=== PATIENT | male | born 1980 | race American Indian/Alaskan Native ===

== ENCOUNTER 2016-12-18 02:52 | Emergency (ER) | payer SELFPAY ==
[2016-12-18] MEDS ORDERED: UNASYN/NS 3 GM/100 ML 3 GM/100 ML BAG IV ONE (03:12)
[2016-12-18] MEDS ORDERED: TORADOL IV ONE (03:12)
[2016-12-18] MEDS ORDERED: DECADRON IV ONE (03:12)
[2016-12-18] MEDS ORDERED: NACL 0.9% 1000 ML 1,000 ML IV ONE ×2 (03:13→06:51)
--- NOTE | 2016-12-18 03:13 | Emergency Department Report ---
ED General Adult HPI - General Chief complaint: Sore Throat Stated complaint: THROAT SWELLING Time Seen by Provider: 12/18/16 03:11 Source: patient, RN notes reviewed Mode of arrival: Ambulatory Limitations: No Limitations - History of Present Illness Initial comments: This is a 36-year-old male. He is previously unknown to me. He does not have a local primary care doctor. He has no chronic medical conditions. Presents to the ER complaining of neck pain, neck swelling, sore throat, trismus. Symptoms have been going on for the past 3 days. They're constant. They worsen when he attempts to open his mouth. There is no dental pain. No headache, chest pain, abdominal pain, shortness of breath. -: Gradual Location: face, mouth, neck Radiation: non-radiation Quality: aching Consistency: intermittent Improves with: rest Worsens with: movement Associated Symptoms: denies: confusion, chest pain, cough, diaphoresis, headaches, loss of appetite, shortness of breath, syncope, weakness - Related Data Allergies Allergy/AdvReac Type Severity Reaction Status Date / Time No Known Allergies Allergy Unverified 04/16/16 14:13 ED Review of Systems ROS: Stated complaint: THROAT SWELLING Other details as noted in HPI Constitutional: denies: fever Eyes: denies: vision change ENT: throat pain. denies: ear pain, dental pain, epistaxis Respiratory: denies: cough Cardiovascular: denies: chest pain Gastrointestinal: denies: abdominal pain Genitourinary: as per HPI Musculoskeletal: denies: back pain, arthralgia, myalgia Skin: denies: lesions Neurological: denies: headache Psychiatric: anxiety ED Past Medical Hx - Surgical History Additional Surgical History: mandible fx - Social History Smoking Status: Current Every Day Smoker Substance Use Type: Alcohol ED Physical Exam - General Limitations: Physical Limitation General appearance: alert, in no apparent distress - Head Head exam: Present: atraumatic, normocephalic - Eye Eye exam: Present: normal appearance, EOMI. Absent: nystagmus - ENT ENT exam: Present: normal exam, mucous membranes moist, TM's normal bilaterally , normal external ear exam, other (the patient is speaking in full sentences, although he has a slight hot potato voice. The uvula is edematous. The left peritonsillar region is swollen. There is anterior adenopathy.) - Neck Neck exam: Present: normal inspection, full ROM, lymphadenopathy. Absent: tenderness - Respiratory Respiratory exam: Present: normal lung sounds bilaterally. Absent: respiratory distress, wheezes, rales, rhonchi, stridor, chest wall tenderness, accessory muscle use, decreased breath sounds, prolonged expiratory - Cardiovascular Cardiovascular Exam: Present: regular rate, normal rhythm, normal heart sounds. Absent: bradycardia, tachycardia, irregular rhythm, systolic murmur, diastolic murmur, rubs, gallop - GI/Abdominal GI/Abdominal exam: Present: soft, normal bowel sounds. Absent: distended, tenderness, guarding, rebound, rigid, pulsatile mass - Rectal Rectal exam: Present: deferred - Extremities Exam Extremities exam: Present: normal inspection, full ROM, normal capillary refill. Absent: pedal edema, joint swelling, calf tenderness - Back Exam Back exam: Present: normal inspection, full ROM. Absent: tenderness, CVA tenderness (R), CVA tenderness (L), muscle spasm, paraspinal tenderness, vertebral tenderness - Neurological Exam Neurological exam: Present: alert, oriented X3, normal gait, other (Extraocular movements intact. Tongue midline. No facial droop. Facial sensation intact to light touch in the V1, V2, V3 distribution bilaterally. 5 and 5 strength in 4 extremities.. Sensation is intact to light touch in 4 extremities.). Absent : motor sensory deficit - Psychiatric Psychiatric exam: Present: normal affect, normal mood - Skin Skin exam: Present: warm, dry, intact, normal color. Absent: rash ED Course Vital Signs 12/18/16 12/18/16 12/18/16 03:08 03:33 03:41 Temperature 99.8 F H Pulse Rate 104 H 97 H 98 H Respiratory 18 11 L 15 Rate Blood Pressure 130/85 110/56 O2 Sat by Pulse 97 99 97 Oximetry 12/18/16 12/18/16 12/18/16 03:51 04:00 04:11 Temperature Pulse Rate 95 H 91 H 110 H Respiratory 16 18 14 Rate Blood Pressure 112/62 111/59 111/59 O2 Sat by Pulse 96 98 92 Oximetry 12/18/16 12/18/16 12/18/16 04:21 04:30 04:41 Temperature Pulse Rate 88 88 93 H Respiratory 15 26 H 24 Rate Blood Pressure 125/77 132/75 132/75 O2 Sat by Pulse 99 99 99 Oximetry 12/18/16 12/18/16 12/18/16 04:51 05:01 05:11 Temperature Pulse Rate 91 H 90 87 Respiratory 18 13 14 Rate Blood Pressure 116/66 109/59 109/59 O2 Sat by Pulse 98 93 97 Oximetry 12/18/16 12/18/16 12/18/16 05:21 05:52 06:00 Temperature Pulse Rate 91 H 95 H 82 Respiratory 15 13 Rate Blood Pressure 132/75 94/52 O2 Sat by Pulse 98 98 100 Oximetry 12/18/16 12/18/16 12/18/16 06:11 06:21 06:30 Temperature Pulse Rate 82 77 84 Respiratory 18 14 14 Rate Blood Pressure 94/52 110/75 115/77 O2 Sat by Pulse 93 98 98 Oximetry - Reevaluation(s) Reevaluation #1: 12/18/16 04:46 Differential diagnosis: Uvulitis, peritonsillar abscess, disc space neck infection Assessment and plan: 36-year-old male with swollen uvula, peritonsillar abscess , speaking in full sentences, with no stridor, does have a component of trismus , protecting his airway. He will be treated empirically with steroids, pain medication, and antibiotics. CT scan of the neck is pending. Most likely will require transfer to a facility that has otolaryngology consultation available. Reevaluation #2: 12/18/16 07:04 As expected, CT scan demonstrates early phlegmon/immature abscess. Patient remaining systemic inflammatory response syndrome criteria by Amato of heart rate greater than 90, leukocytosis of 15, suspected bacterial infection in the uvula and left-sided peritonsillar region. Case is presented to the pressure controller reconciler for [facility], Dr. Garza, who graciously accepts the patient as an ER to ER transfer for otolaryngology consultation Medical decision making: A 36-year-old male with posterior pharyngeal phlegmon/ early abscess with systemic inflammatory response syndrome criteria for crisis transfer to higher care as his facility does not have otolaryngology available for consultation. Dr Millan, ER physician also accepts 12/18/16 07:07 ED Medical Decision Making - Lab Data Result diagrams: 12/18/16 03:27 12/18/16 03:27 Critical care attestation.: If time is entered above; I have spent that time in minutes in the direct care of this critically ill patient, excluding procedure time. ED Disposition Clinical Impression: SIRS (systemic inflammatory response syndrome), Peritonsillar abscess Disposition: DC/TX [facility] IP Is pt being admited?: No Does the pt Need Aspirin: No Condition: Good Referrals: PRIMARY CARE, [Primary Care Provider] - 3-5 Days
[2016-12-18 04:00] LABS: Hematocrit 41.9 % (35.5-45.6); Hemoglobin 14.6 gm/dl (11.8-15.2); Mean Corpuscular HGB Conc 35 % (32-34); Mean Corpuscular Hemoglobin 31 pg (28-32); Mean Corpuscular Volume 88 fl (84-94); Platelet Count 274 K/mm3 (140-440); Red Blood Count 4.76 M/mm3 (3.65-5.03); Red Cell Distribution Width 13.2 % (13.2-15.2); White Blood Count 15.6 K/mm3 (4.5-11.0)
[2016-12-18 04:04] LABS: Anion Gap 20 mmol/L; Blood Urea Nitrogen 12 mg/dL (9-20); Calcium 8.7 mg/dL (8.4-10.2); Carbon Dioxide 24 mmol/L (22-30); Chloride 93.1 mmol/L (98-107); Creatine Kinase 84 units/L (55-170); Glucose 98 mg/dL (75-100); Potassium 3.5 mmol/L (3.6-5.0); Sodium 134 mmol/L (137-145)
[2016-12-18 04:45] LABS: INR 1.13 (0.87-1.13)
[2016-12-18] MEDS ORDERED: NACL ONE (05:09)
--- NOTE | 2016-12-18 06:49 | Cat Scan Report ---
FINAL REPORT PROCEDURE: CT NECK W CON TECHNIQUE: Computerized axial tomography of the soft tissue neck was performed following the IV injection of iodinated nonionic contrast. HISTORY: peritonsillar abscess LT NECK PAIN COMPARISON: No prior studies are available for comparison. FINDINGS: The left palatine tonsil is enlarged. There is an ill-defined central low-density area measuring approximately 1.5 centimeters in diameter suggesting focal edema or phlegmon or early abscess. No mature abscess is seen. There is no airway occlusion. There is reactive bilateral cervical lymphadenopathy greater on the left. Largest node is in the left submandibular region measuring 18 millimeters in diameter. The adenoid soft tissues, epiglottis and prevertebral soft tissues are normal in thickness. Thyroid gland is unremarkable. Carotid and jugular vessels are patent and normal in caliber. Bony structures are intact. There is no sinusitis. Lung apices are clear. IMPRESSION: The left palatine tonsil is enlarged. There is an ill-defined central low-density area measuring approximately 1.5 centimeters in diameter suggesting focal edema or phlegmon or early abscess. No mature abscess is seen. There is no airway occlusion. There is reactive bilateral cervical lymphadenopathy greater on the left.
[2016-12-18 07:20] VITALS: BP 129/72
== END 2016-12-18 07:56 | disposition short-term general hospital (02) ==
LOC: ED 02:52
DX: R65.10 Systemic inflammatory response syndrome (SIRS) of non-infectious origin without acute organ dysfunction (principal); J36 Peritonsillar abscess; F17.210 Nicotine dependence, cigarettes, uncomplicated
CPT/HCPCS: 36415; 70491; 80048; 82140; 82550; 85027; 85610; 87040; 96361; 96365; 96375; 99285; J0295; J1100; J1885; J7030; Q9967

== ENCOUNTER 2017-10-02 18:58 | Emergency (ER) | payer SELFPAY ==
[2017-10-02 20:02] LABS: Basophils % (Auto) 0.2 % (0.0-1.8); Eosinophils % (Auto) 0.1 % (0.0-4.3); Hematocrit 45.1 % (35.5-45.6); Hemoglobin 15.3 gm/dl (11.8-15.2); Lymphocytes % (Auto) 5.3 % (13.4-35.0); Mean Corpuscular HGB Conc 34 % (32-34); Mean Corpuscular Hemoglobin 29 pg (28-32); Mean Corpuscular Volume 86 fl (84-94); Monocytes # (Auto) 1.7 K/mm3 (0.0-0.8); Monocytes % (Auto) 9.1 % (0.0-7.3); Platelet Count 281 K/mm3 (140-440); Red Blood Count 5.23 M/mm3 (3.65-5.03); Red Cell Distribution Width 13.1 % (13.2-15.2)
[2017-10-02 20:24] LABS: Alanine Aminotransferase 9 units/L (7-56); Albumin 4.4 g/dL (3.9-5); BUN/Creatinine Ratio 25; Blood Urea Nitrogen 30 mg/dL (9-20); Calcium 8.9 mg/dL (8.4-10.2); Hemolysis Index 3
[2017-10-03] MEDS ORDERED: NACL 0.9% 1000 ML 1,000 ML IV ONE ×2 (00:06→00:57)
[2017-10-03] MEDS ORDERED: TORADOL IV ONE (00:06)
--- NOTE | 2017-10-03 00:10 | Emergency Department Report ---
ED General Adult HPI - General Chief complaint: Extremity Problem,Nontraumatic Stated complaint: HEAt CRAMPS Time Seen by Provider: 10/03/17 00:00 Source: patient, EMS Mode of arrival: Ambulatory Limitations: No Limitations - History of Present Illness Initial comments: Patient is a 36-year-old gentleman who states he was just [facility] days ago he's been walking long distances trying to get home. Patient has no transportation. Patient states he started to get body cramps because of the heat. Patient ate or drank anything in 2 days. Patient denies any syncope states he was sweating. Patient states the body aches mostly in his calves and 6 out of 10 in severity. Patient denies any nausea vomiting or headache at this time. - Related Data Previous Rx's Medication Instructions Recorded Last Taken Type Ibuprofen [Motrin] 600 mg PO Q8H PRN #20 tablet 10/03/17 Unknown Rx traMADol [Ultram] 50 mg PO Q6HR PRN #10 tablet 10/03/17 Unknown Rx Allergies Allergy/AdvReac Type Severity Reaction Status Date / Time No Known Allergies Allergy Unverified 04/16/16 14:13 ED Review of Systems ROS: Stated complaint: HEAt CRAMPS Other details as noted in HPI Comment: All other systems reviewed and negative ED Past Medical Hx - Past Medical History Previous Medical History?: No - Surgical History Past Surgical History?: Yes Additional Surgical History: mandible fx - Social History Smoking Status: Current Every Day Smoker Substance Use Type: None - Medications Home Medications: Home Medications Medication Instructions Recorded Confirmed Last Taken Type Ibuprofen [Motrin] 600 mg PO Q8H PRN #20 tablet 10/03/17 Unknown Rx traMADol [Ultram] 50 mg PO Q6HR PRN #10 tablet 10/03/17 Unknown Rx ED Physical Exam - General Limitations: No Limitations General appearance: alert, in no apparent distress - Head Head exam: Present: atraumatic, normocephalic - Eye Eye exam: Present: normal appearance - ENT ENT exam: Present: mucous membranes moist - Neck Neck exam: Present: normal inspection - Respiratory Respiratory exam: Present: normal lung sounds bilaterally. Absent: respiratory distress - Cardiovascular Cardiovascular Exam: Present: regular rate, normal rhythm. Absent: systolic murmur, diastolic murmur, rubs, gallop - GI/Abdominal GI/Abdominal exam: Present: soft, normal bowel sounds - Rectal Rectal exam: Present: deferred - Extremities Exam Extremities exam: Present: normal inspection - Back Exam Back exam: Present: normal inspection - Neurological Exam Neurological exam: Present: alert, oriented X3 - Psychiatric Psychiatric exam: Present: normal affect, normal mood - Skin Skin exam: Present: warm, dry, intact, normal color. Absent: rash ED Course Vital Signs 10/02/17 19:11 Temperature 97.9 F Pulse Rate 105 H Respiratory 28 H Rate Blood Pressure 107/63 O2 Sat by Pulse 97 Oximetry ED Medical Decision Making - Lab Data Result diagrams: 10/02/17 19:52 10/02/17 19:52 - Medical Decision Making Patient is in a mild rhabdomyolysis. CK is less than thousand. He is prerenal on his labs. Patient received 1 L of IV fluids before arrival in additional to be given. Patient be discharged after that. Critical care attestation.: If time is entered above; I have spent that time in minutes in the direct care of this critically ill patient, excluding procedure time. ED Disposition Clinical Impression: Dehydration Rhabdomyolysis Qualifiers: Rhabdomyolysis type: non-traumatic Qualified Code(s): M62.82 - Rhabdomyolysis Disposition: DC-01 TO HOME OR SELFCARE Is pt being admited?: No Does the pt Need Aspirin: No Condition: Stable Instructions: Muscle Cramp (ED), Heat Exhaustion (ED), Rhabdomyolysis (ED) Referrals: PRIMARY CARE, [Primary Care Provider] - 3-5 Days
[2017-10-03 04:21] VITALS: BP 96/53
== END 2017-10-03 03:45 | disposition home or self-care (01) ==
LOC: ED 18:58
DX: M62.82 Rhabdomyolysis (principal); E86.0 Dehydration; F17.200 Nicotine dependence, unspecified, uncomplicated
CPT/HCPCS: 36415; 80053; 82550; 82962; 85025; 96361; 96374; 99284; J1885; J7030

== ENCOUNTER 2020-10-22 20:38 | Emergency (ER) | payer SELFPAY ==
[2020-10-22 21:43] VITALS: BP 146/92
--- NOTE | 2020-10-23 01:55 | Emergency Department Report ---
ED General Adult HPI - General Chief complaint: Wound/Laceration Stated complaint: LACERATION TO RIGHT HAND Time Seen by Provider: 10/23/20 01:45 Source: patient Mode of arrival: Ambulatory Limitations: No Limitations - History of Present Illness Initial comments: 39-year-old [id number] male patient presents to the emergency department with complaints of a laceration to his right hand occurring approximately 24 hours ago. Patient states he accidentally cut himself with a knife while attempting to open a can. Tetanus is up-to-date. He applied antibiotic ointment to the affected area prior to arrival. No other injuries. Denies shoulder pain, elbow pain, wrist pain, paresthesias, numbness, weakness. Denies all other complaints at this time. - Related Data Previous Rx's Medication Instructions Recorded Last Taken Type Ibuprofen [Motrin] 600 mg PO Q8H PRN #20 tablet 10/03/17 Unknown Rx traMADoL [Ultram] 50 mg PO Q6HR PRN #10 tablet 10/03/17 Unknown Rx Allergies Allergy/AdvReac Type Severity Reaction Status Date / Time No Known Allergies Allergy Unverified 04/16/16 14:13 ED Review of Systems ROS: Stated complaint: LACERATION TO RIGHT HAND Other details as noted in HPI Other: GENERAL: Negative for fever. CARDIOVASCULAR: Negative for chest pain. PULMONARY: Negative for shortness of breath. GASTROINTESTINAL: Negative for abdominal pain. MUSCULOSKELETAL: Negative for back pain. NEUROLOGICAL: Negative for headache. INTEGUMENTARY: Positive for laceration. ED Past Medical Hx - Past Medical History Previous Medical History?: No - Surgical History Past Surgical History?: Yes Additional Surgical History: mandible fx - Social History Smoking Status: Current Every Day Smoker Substance Use Type: None - Medications Home Medications: Home Medications Medication Instructions Recorded Confirmed Last Taken Type Ibuprofen [Motrin] 600 mg PO Q8H PRN #20 tablet 10/03/17 Unknown Rx traMADoL [Ultram] 50 mg PO Q6HR PRN #10 tablet 10/03/17 Unknown Rx ED Physical Exam - General Limitations: No Limitations - Other Other exam information: General: Awake, appropriately interactive, no acute distress. Neck: Supple. Full range of motion intact. Cardiovascular: Normal peripheral perfusion. Pulmonary: No respiratory distress. Patient is speaking normally without use of accessory muscles. Skin: 3 cm vertical laceration to the radial aspect of the right index finger/right hand involving skin and subcutaneous tissue. Minimal active bleeding. Active and passive range of motion with and without resistance intact in all directions. Distal neurovascular and motor/sensory function intact. Neurological: No facial asymmetry. Speech is clear. Follows commands. Patient is alert and oriented. Musculoskeletal: Moves all four extremities spontaneously with normal range of motion. Psych: Cooperative. Appropriate mood and affect. ED Course Vital Signs 10/22/20 21:40 Temperature 98.1 F Pulse Rate 99 H Respiratory 16 Rate Blood Pressure 146/92 O2 Sat by Pulse 96 Oximetry ED Medical Decision Making - Medical Decision Making Patient presents to the emergency department with complaints of a laceration to his right hand occurring approximately 24 hours ago. He is afebrile. Vital signs are stable. No clinical evidence to suggest tendon injury or neurovascular injury. Patient is not an appropriate candidate for primary wound closure due to delayed presentation. He was offered wound care and a prescription for antibiotics, but refused further treatment. The patient chooses to leave AGAINST MEDICAL ADVICE. The patients ability to make an informed decision has been assessed and it has been determined that the patient has the capacity to comprehend the information about their current medical condition and appreciate the impact of the disease and the consequence of various options for treatment, including forgoing treatment. The patient possesses the ability to evaluate all treatment options, compare the risks and benefits of each option, communicate this choice in a consistent manner over time, and is able to make choices that are not irrational. The patient has been informed about the ideal further testing, treatments, and evaluations that may be indicated during the current emergency department visit as well as any possible alternatives that could be accomplished in a timely manner. The patient is aware of the possible risks of foregoing any or all of these interventions and the patient acknowledges that the decision to leave may result in undesirable consequences such as permanent disability and/or loss of current lifestyle. Even through leaving AGAINST MEDICAL ADVICE is not ideal, the patient has been instructed to follow any discharge instructions given, take any medications prescribed, and resume care as soon as possible with another provider. Additionally, it has been clearly stated that the patient is welcome to return at any time to continue care at this facility. Critical care attestation.: If time is entered above; I have spent that time in minutes in the direct care of this critically ill patient, excluding procedure time. ED Disposition Clinical Impression: Laceration of right hand Qualifiers: Encounter type: initial encounter Foreign body presence: unspecified Qualified Code(s): S61.411A - Laceration without foreign body of right hand, initial encounter Disposition: LEFT AGAINST MED ADVICE Is pt being admited?: No Does the pt Need Aspirin: No Condition: Undetermined Instructions: Nonsutured Laceration Care Additional Instructions: Take Tylenol every 4 hours as needed for pain. Apply antibiotic ointment to affected area 3 times daily. Keep wound clean and covered. Change dressing daily. Follow-up with primary care provider this week. Call Saturday to schedule an appointment. See referral information below. Return to the emergency department immediately for new or worsening symptoms. Referrals: JEREMIAH PRATT MD [Staff Physician] - 3-5 Days [facility] [Outside] - 3-5 Days [facility] [Outside] - 3-5 Days [facility] [Outside] - 3-5 Days [facility] [Provider Group] - 3-5 Days Forms: AMA Form Time of Disposition: 01:55
== END 2020-10-23 02:00 | disposition left against medical advice (07) ==
LOC: ED 20:38
DX: S61.411A Laceration without foreign body of right hand, initial encounter (principal); F17.200 Nicotine dependence, unspecified, uncomplicated; Z98.890 Other specified postprocedural states; Z79.899 Other long term (current) drug therapy; W26.0XXA Contact with knife, initial encounter; Y93.89 Activity, other specified; Y92.89 Other specified places as the place of occurrence of the external cause; Y99.8 Other external cause status
CPT/HCPCS: 99282